=== PATIENT | female | born 1975 | race Caucasian/White ===

== ENCOUNTER 2022-09-03 15:21 | Outpatient (CLI) | payer OTHER, SELFPAY ==
[2022-09-03 17:13] LABS: Chloride* 100 mmol/L (96-114); Sodium* 138 mmol/L (135-149)
[2022-09-03 17:14] LABS: Potassium* 3.6 mmol/L (3.6-5.1)
[2022-09-03 17:16] LABS: Estimated Glomerular Filt Rate 69 ml/min
[2022-09-03 17:17] LABS: Blood Urea Nitrogen* 9 mg/dL (5-24); Calcium* 9.1 mg/dL (8.4-10.6); Carbon Dioxide* 30 mmol/L (20-32); Glucose* 95 mg/dL (60-115)
== END 2022-09-03 15:22 | disposition home or self-care (01) ==
PROVIDERS: Visit Provider Student in an Organized Health Care Education/Training Program
DX: U07.1 COVID-19 (principal)
CPT/HCPCS: 80048